=== PATIENT | female | born 1995 | race Caucasian/White ===

== ENCOUNTER 2017-12-11 04:06 | Emergency (ER) | payer SELFPAY ==
[2017-12-11 04:18] VITALS: RESP 16
--- NOTE | 2017-12-11 04:52 | ED ---
Abdominal Pain HPI - General Chief Complaint: Abdominal Pain Stated Complaint: Back/Abdominal Pain Time Seen by Provider: 12/11/17 04:24 Source: patient Mode of arrival: ambulatory Limitations: no limitations - History of Present Illness Initial Comments: This patient is 20-year-old woman who presents to be evaluated for suspected urinary tract infection. She states she started having dysuria between 2 and 3 days ago. She states over the course the past day she noticed some low abdominal pain and some bilateral flank pain that got worse this morning. Patient denies vaginal discharge. Denies fever or chills. No other symptoms. MD Complaint: abdominal pain, flank pain Onset/Timin -: days(s) Location: suprapubic, L flank, R flank Migration to: no migration Severity: severe Quality: aching Consistency: constant Improves With: nothing Worsens With: other (urination) Associated Symptoms: dysuria - Related Data Previous Rx's Medication Instructions Recorded Ciprofloxacin HCl [Cipro] 500 mg PO Q12HR #14 tablet 12/11/17 Ibuprofen [Motrin] 600 mg PO Q8HR PRN #20 tab 12/11/17 Phenazopyridine [Pyridium] 100 mg PO TID #6 tablet 12/11/17 Allergies Allergy/AdvReac Type Severity Reaction Status Date / Time No Known Allergies Allergy Verified 12/11/17 04:18 Review of Systems ROS Statement: Those systems with pertinent positive or pertinent negative responses have been documented in the HPI. ROS Other: All systems not noted in ROS Statement are negative. Constitutional: Denies: fever, chills Respiratory: Denies: cough, dyspnea Cardiovascular: Denies: chest pain Gastrointestinal: Reports: abdominal pain. Denies: nausea, vomiting, diarrhea Genitourinary: Reports: dysuria, hematuria. Denies: discharge, abnormal menses Musculoskeletal: Denies: back pain Skin: Denies: rash Neurological: Denies: headache, weakness, numbness Past Medical History Past Medical History: No Reported History History of Any Multi-Drug Resistant Organisms: None Reported Past Surgical History: No Surgical Hx Reported Past Psychological History: No Psychological Hx Reported Smoking Status: Never smoker Past Alcohol Use History: Rare Past Drug Use History: Marijuana General Exam Limitations: no limitations General appearance: alert, in no apparent distress Head exam: Present: atraumatic, normocephalic Eye exam: Present: normal appearance. Absent: scleral icterus, conjunctival injection ENT exam: Present: normal oropharynx Respiratory exam: Present: normal lung sounds bilaterally. Absent: respiratory distress, wheezes, rales, rhonchi, stridor Cardiovascular Exam: Present: regular rate, normal rhythm, normal heart sounds. Absent: systolic murmur, diastolic murmur, rubs, gallop GI/Abdominal exam: Present: soft, tenderness (There is suprapubic tenderness without rebound or guarding), normal bowel sounds. Absent: distended, guarding , rebound, rigid, mass, pulsatile mass, hernia Extremities exam: Present: normal inspection, normal capillary refill. Absent: pedal edema, calf tenderness Back exam: Present: normal inspection. Absent: CVA tenderness (R), CVA tenderness (L) Neurological exam: Present: alert Skin exam: Present: warm, dry, intact, normal color. Absent: rash Course Vital Signs 12/11/17 04:14 Temperature 98.6 F Pulse Rate 102 H Respiratory 16 Rate Blood Pressure 122/72 O2 Sat by Pulse 100 Oximetry Medical Decision Making - Lab Data Lab Results 12/11/17 Range/Units 04:35 Urine Color Yellow Urine Appearance Cloudy H (Clear) Urine pH 6.0 (5.0-8.0) Ur Specific [place] 1.012 (1.001-1.035) Urine Protein 1+ H (Negative) Urine Glucose (UA) Negative (Negative) Urine Ketones Trace H (Negative) Urine Blood Small H (Negative) Urine Nitrite Negative (Negative) Urine Bilirubin Negative (Negative) Urine Urobilinogen <2.0 (<2.0) mg/dL Ur Leukocyte Esterase Large H (Negative) Urine RBC 31 H (0-5) /hpf Urine WBC >182 H (0-5) /hpf Urine WBC Clumps Few H (None) /hpf Ur Squamous Epith Cells 2 (0-4) /hpf Urine Mucus Rare H (None) /hpf Disposition Clinical Impression: Urinary tract infection Disposition: HOME SELF-CARE Condition: Good Instructions: Urinary Tract Infection in Women (ED) Prescriptions: Ciprofloxacin HCl [Cipro] 500 mg PO Q12HR #14 tablet Ibuprofen [Motrin] 600 mg PO Q8HR PRN #20 tab PRN Reason: Pain Phenazopyridine [Pyridium] 100 mg PO TID #6 tablet Is patient prescribed a controlled substance at d/c from ED?: No Referrals: None,Stated [Primary Care Provider] - 1-2 days
[2017-12-11 05:06] LABS: Appearance,Urine Cloudy (Clear); Bilirubin,Urine Negative (Negative); Blood,Urine Small (Negative); Color,Urine Yellow; Glucose,Urine (UA) Negative (Negative); Ketones,Urine Trace (Negative); Leukocyte Esterase,Urine Large (Negative); Mucus,Urine Rare /hpf; Nitrite,Urine Negative (Negative); Protein,Urine 1+ (Negative); RBC,Urine 31 /hpf (0-5); Specific Gravity,Urine 1.012 (1.001-1.035); Squamous Epithelial Cell,Urine 2 /hpf (0-4); Urobilinogen,Urine <2.0 mg/dL (<2.0); WBC,Urine >182 /hpf (0-5)
[2017-12-11] MEDS ORDERED: LEVOFLOXACIN 500 MG TAB PO STA (05:39)
[2017-12-11 06:22] VITALS: BP 109/58; PULSE 75; TEMP 98.2
== END 2017-12-11 06:25 | disposition home or self-care (01) ==
LOC: EC 04:06
DX: N39.0 Urinary tract infection, site not specified (principal)
CPT/HCPCS: 81001; 99284

== ENCOUNTER 2019-06-01 14:48 | Emergency (ER) | payer BC ==
[2019-06-01 14:55] VITALS: TEMP 97.8
--- NOTE | 2019-06-01 15:29 | ED ---
SOB HPI - General Chief Complaint: Shortness of Breath Stated Complaint: Rib pain Time Seen by Provider: 06/01/19 15:08 Source: patient Mode of arrival: ambulatory Limitations: no limitations - History of Present Illness Initial Comments: Patient is a 23-year-old female presenting to the emergency Department with complaints of shortness of breath and left-sided rib pain that started 4 AM this morning. Patient states this pain woke her up from sleep. Patient is currently 22 weeks . She did call her JOB PRINTER, Dr. Goodwin today who recommended she go into the ER for evaluation. Patient states she did have flulike symptoms last week with lots of coughing. Patient states those symptoms have since improved. Patient states her pain does increase with coughing or deep breathing. She never has had this kind of rib pain before. She denies history of blood clots. She denies recent travel. She denies chest pains, vomiting, diarrhea, abdominal pain. She denies any vaginal bleeding. She has no other complaints at this time. Upon arrival to the ER, her vital signs are stable. - Related Data Previous Rx's Medication Instructions Recorded Ciprofloxacin HCl [Cipro] 500 mg PO Q12HR #14 tablet 12/11/17 Ibuprofen [Motrin] 600 mg PO Q8HR PRN #20 tab 12/11/17 Phenazopyridine [Pyridium] 100 mg PO TID #6 tablet 12/11/17 Albuterol Inhaler [Ventolin Hfa 1 - 2 puff INHALATION RT-Q6H PRN 06/01/19 Inhaler] #1 inhaler Azithromycin [Zithromax Z-pack] 0 mg PO DIRECTED #1 pack 06/01/19 Allergies Allergy/AdvReac Type Severity Reaction Status Date / Time No Known Allergies Allergy Verified 06/01/19 14:56 Review of Systems ROS Statement: Those systems with pertinent positive or pertinent negative responses have been documented in the HPI. ROS Other: All systems not noted in ROS Statement are negative. Past Medical History Past Medical History: No Reported History History of Any Multi-Drug Resistant Organisms: None Reported Past Surgical History: No Surgical Hx Reported Past Psychological History: Anxiety Smoking Status: Never smoker Past Alcohol Use History: Rare Past Drug Use History: None Reported, Marijuana General Exam - General Exam Comments Initial Comments: GENERAL: Well-appearing, well-nourished and in no acute distress. HEAD: Atraumatic, normocephalic. EYES: Pupils equal round and reactive to light, extraocular movements intact, sclera anicteric, conjunctiva are normal. ENT: TMs normal, nares patent, oropharynx clear without exudates. Moist mucous membranes. NECK: Normal range of motion, supple without lymphadenopathy or JVD. LUNGS: Breath sounds clear to auscultation bilaterally and equal. No wheezes rales or rhonchi. HEART: Regular rate and rhythm without murmurs, rubs or gallops. ABDOMEN: Soft, nontender, normoactive bowel sounds. No guarding, no rebound. No masses appreciated. : Deferred EXTREMITIES: Normal range of motion, no pitting or edema. No clubbing or cyanosis. NEUROLOGICAL: Normal speech, normal gait. PSYCH: Normal mood, normal affect. SKIN: Warm, Dry, normal turgor, no rashes or lesions noted. Limitations: no limitations Course Vital Signs 06/01/19 06/01/19 14:51 17:05 Temperature 97.8 F Pulse Rate 82 88 Respiratory 18 16 Rate Blood Pressure 115/70 112/78 O2 Sat by Pulse 98 100 Oximetry Medical Decision Making - Medical Decision Making Patient is a 23-year-old female presenting with sudden onset of left-sided rib pain as well as shortness of breath since this morning. Patient is currently 22 weeks and did call her JOB PRINTER, Dr. Goodwin who recommended ER ev aluation. tones today are normal. Laboratory today shows slight leukocytosis at 14.3, d-dimer is elevated at 1.75. CTA was obtained to evaluate for PE. No evidence of PE, multifocal left sided pneumonia. I discussed these findings with the patient. Patient will be started on azithromycin and given an inhaler to use for shortness of breath. She is in agreement with this plan of care. She will follow up with her JOB PRINTER. Return parameters were discussed with the patient she verbalized understanding. She is stable for discharge. Case discussed with Dr. Mclaughlin. - Lab Data Result diagrams: 06/01/19 15:26 06/01/19 15:26 Lab Results 06/01/19 06/01/19 06/01/19 Range/Units 15:26 15:26 15:26 WBC 14.3 H (3.8-10.6) k/uL RBC 3.96 (3.80-5.40) m/uL Hgb 11.9 (11.4-16.0) gm/dL Hct 33.8 L (34.0-46.0) % MCV 85.5 (80.0-100.0) fL MCH 30.1 (25.0-35.0) pg MCHC 35.2 (31.0-37.0) g/dL RDW 12.9 (11.5-15.5) % Plt Count 229 (150-450) k/uL Neutrophils % 85 % Lymphocytes % 8 % Monocytes % 4 % Eosinophils % 1 % Basophils % 1 % Neutrophils # 12.1 H (1.3-7.7) k/uL Lymphocytes # 1.2 (1.0-4.8) k/uL Monocytes # 0.6 (0-1.0) k/uL Eosinophils # 0.2 (0-0.7) k/uL Basophils # 0.1 (0-0.2) k/uL D-Dimer 1.75 H (<0.60) mg/L FEU Sodium 133 L (137-145) mmol/L Potassium 4.0 (3.5-5.1) mmol/L Chloride 106 (98-107) mmol/L Carbon Dioxide 21 L (22-30) mmol/L Anion Gap 6 mmol/L BUN 9 (7-17) mg/dL Creatinine 0.42 L (0.52-1.04) mg/dL Est GFR (CKD-EPI)AfAm >90 (>60 ml/min/1.73 sqM) Est GFR (CKD-EPI)NonAf >90 (>60 ml/min/1.73 sqM) Glucose 81 (74-99) mg/dL Calcium 8.5 (8.4-10.2) mg/dL Total Bilirubin 0.7 (0.2-1.3) mg/dL AST 33 (14-36) U/L ALT 29 (4-34) U/L Alkaline Phosphatase 66 (38-126) U/L Total Protein 6.0 L (6.3-8.2) g/dL Albumin 3.3 L (3.5-5.0) g/dL Disposition Clinical Impression: Pneumonia, Rib pain on left side Disposition: HOME SELF-CARE Condition: Stable Instructions (If sedation given, give patient instructions): Pneumonia (ED) Additional Instructions: Please return to the Emergency Department if symptoms worsen or any other concerns. Take antibiotic as prescribed. Use inhaler as needed for shortness of breath. Follow-up with JOB PRINTER as discussed. Prescriptions: Albuterol Inhaler [Ventolin Hfa Inhaler] 1 - 2 puff INHALATION RT-Q6H PRN #1 inhaler PRN Reason: Shortness Of Breath Azithromycin [Zithromax Z-pack] 0 mg PO DIRECTED #1 pack Is patient prescribed a controlled substance at d/c from ED?: No Referrals: None,Stated [Primary Care Provider] - 1-2 days Ganga Goodwin DO [Family Provider] - 1-2 days
[2019-06-01 15:39] LABS: Basophils # (A) 0.1 k/uL (0-0.2); Basophils % (A) 1 %; Eosinophils # (A) 0.2 k/uL (0-0.7); Eosinophils % (A) 1 %; HCT 33.8 % (34.0-46.0); HGB 11.9 gm/dL (11.4-16.0); Lymphocytes # (A) 1.2 k/uL (1.0-4.8); Lymphocytes % (A) 8 %; MCH 30.1 pg (25.0-35.0); MCHC 35.2 g/dL (31.0-37.0); MCV 85.5 fL (80.0-100.0); Mean Platelet Volume 7.4; Monocytes # (A) 0.6 k/uL (0-1.0); Monocytes % (A) 4 %; Neutrophils # (A) 12.1 k/uL (1.3-7.7); Neutrophils % (A) 85 %; Platelet Count 229 k/uL (150-450); RBC 3.96 m/uL (3.80-5.40); RDW 12.9 % (11.5-15.5); WBC 14.3 k/uL (3.8-10.6)
[2019-06-01 16:05] LABS: ALT 29 U/L (4-34); AST 33 U/L (14-36); African American GFR (CKD) >90 (>60 ml/min/1.73 sqM); Albumin 3.3 g/dL (3.5-5.0); Alkaline Phosphatase 66 U/L (38-126); Anion Gap 6 mmol/L; Blood Urea Nitrogen 9 mg/dL (7-17); Calcium 8.5 mg/dL (8.4-10.2); Carbon Dioxide 21 mmol/L (22-30); Chloride 106 mmol/L (98-107); Glucose 81 mg/dL (74-99); Non-African American GFR(CKD) >90 (>60 ml/min/1.73 sqM); Sodium 133 mmol/L (137-145); Total Bilirubin 0.7 mg/dL (0.2-1.3)
--- NOTE | 2019-06-01 16:44 | CT ---
EXAMINATION TYPE: CT chest angio for PE DATE OF EXAM: 06/01/2019 COMPARISON: NONE HISTORY: Elevated d-dimer with left sided chest pain. CT DLP: 252.9 mGycm. Automated Exposure Control for Dose Reduction was Utilized. CONTRAST: CTA scan of the thorax is performed with IV Contrast, patient injected with 100 mL of Isovue 370, pul monary embolism protocol. MIP Images are created on CT scanner and reviewed. FINDINGS: LUNGS: On 4 left basilar multifocal opacities appear as pneumonia. Minimal atelectasis in the lungs.. There is no pleural effusion or pneumothorax seen. The tracheobronchial tree is patent. MEDIASTINUM: Incidentally noted bovine aortic arch. There is satisfactory enhancement of the pulmonar y artery and its branches, there is no CT evidence for pulmonary embolism. There are no greater than 1 cm hilar or mediastinal lymph nodes. No cardiomegaly or pericardial effusion is seen. Small amou nt of probable residual thymic tissue in the superior anterior mediastinum. OTHER: Suspected mild degree hepatic steatosis. Osseous structures appear intact. IMPRESSION: 1. No evidence of pulmonary bolus. 2. Multifocal left basilar and solid lesions, most compatible with multifocal pneumonia.
[2019-06-01 17:06] VITALS: BP 112/78; PULSE 88; RESP 16
== END 2019-06-01 17:02 | disposition home or self-care (01) ==
LOC: EC 14:48
DX: O99.512 Diseases of the respiratory system complicating pregnancy, second trimester (principal); J18.9 Pneumonia, unspecified organism; O99.89 Other specified diseases and conditions complicating pregnancy, childbirth and the puerperium; R07.81 Pleurodynia; O99.112 Other diseases of the blood and blood-forming organs and certain disorders involving the immune mechanism complicating pregnancy, second trimester; R79.1 Abnormal coagulation profile; Z3A.22 22 weeks gestation of pregnancy
CPT/HCPCS: 36415; 85379; 80053; 85025; 71275; 99285; Q9967

== ENCOUNTER 2019-09-29 16:07 | Inpatient (IN) | payer BC ==
[2019-09-29] MEDS ORDERED: BUTORPHANOL 1 MG/ML 1 ML VIAL IV PRN (16:20)
[2019-09-29] MEDS ORDERED: DINOPROSTONE 10 MG INSERT.ER VAGINAL ONE (16:20)
--- NOTE | 2019-09-29 17:35 | P.HPOB ---
History of Present Illness H&P Date: 09/29/19 Chief Complaint: Requested induction of labor This patient is a pleasant 23-year-old 1 para 0 female estimated date of confinement 10/05/2019 estimated gestational age 39 and one sevenths weeks who presents to labor and delivery for requested induction of labor. Patient does have an unfavorable cervix and therefore going to plan Cervidil for cervical ripening. The father of the baby did have a brother who from a congenital heart defect so I did order a level III ultrasound and heart echo which showed to mid muscular VSDs that were felt to be small resolve . Maternal medicine recommended a follow-up echo . Pregnan cy has otherwise been uncomplicated. Review of Systems Genitourinary: Reports Menstruation: Reports amenorrhea Past Medical History Past Medical History: No Reported History History of Any Multi-Drug Resistant Organisms: None Reported Past Surgical History: No Surgical Hx Reported Past Anesthesia/Blood Transfusion Reactions: No Reported Reaction Past Psychological History: Anxiety Smoking Status: Never smoker Past Alcohol Use History: Rare Past Drug Use History: None Reported, Marijuana - Past Family History Mother History Unknown: Yes Family Medical History: No Reported History Medications and Allergies Home Medications Medication Instructions Recorded Confirmed Type Pnv No.95/Ferrous Fum/Folic AC 1 each PO 09/29/19 History [ Multivitamin Tablet] Allergies Allergy/AdvReac Type Severity Reaction Status Date / Time No Known Allergies Allergy Verified 09/29/19 16:18 Exam Vital Signs Temp Pulse Resp BP 09/29/19 16:17 96.7 F L 90 16 141/87 Intake and Output 09/29/19 09/29/19 09/29/19 06:59 14:59 22:59 Other: Weight 74.389 kg - OBG Physical Exam Abdomen: bowel sounds normal, no diffuse tenderness, no bruit present, no guarding noted, no hepatomegaly, no splenomegaly, no mass Vulva: both: normal Vagina: normal moisture, no discharge Cervix: no lesion (Cervix is closed and thick.), no discharge Uterus: enlarged (Fundal height is 38 cm) Results blood work shows she is O positive, rubella immune, RPR is nonreactive, hepatitis B is negative, HIV is nonreactive, Glucola was 157 with a normal three-hour gtt., group B strep was negative, ultrasounds as above. Cardiac echo was done on June 04 which showed 2 small mid muscular VSDs that recommended a nonemergent follow-up. Assessment and Plan Assessment: This is a pleasant 23-year-old 1 para 0 female 39 and one sevenths weeks gestation admitted to labor and delivery for requested duction of labor. Plan is Cervidil placement and anticipate vaginal delivery. Patient's evaluation is also showed 2 small mid muscular VSD's that are require follow-up not emergently. (1) 39 weeks gestation of Current Visit: Yes Status: Acute Code(s): Z3A.39 - 39 WEEKS GESTATION OF SNOMED Code(s): 35912491 (2) Elective induction of labor planned Current Visit: Yes Status: Acute Code(s): ZEX6875 - SNOMED Code(s): 694886942
[2019-09-30] MEDS ORDERED: METHYLERGONOVINE 0.2 MG/ML 1 ML AMP IM PRN (05:09)
[2019-09-30] MEDS ORDERED: OXYTOCIN 10 UNIT/ML 1 ML VIAL IM PRN (05:09)
[2019-09-30] MEDS ORDERED: LIDOCAINE 0.5% (PF) 5 MG/ML (50 ML SDV) SQ PRN (05:09)
[2019-09-30] MEDS ORDERED: TERBUTALINE 1 MG/ML VIAL SQ PRN (05:09)
[2019-09-30] MEDS ORDERED: OXYTOCIN 30 UNITS/500 ML NS 30 UNIT in SALINE 1 500ML.BAG IV SCH (05:09)
[2019-09-30] MEDS ORDERED: CARBOPROST TROMETHAMINE 250 MCG/ML 1 ML AMP IM PRN (05:09)
[2019-09-30] MEDS: LACTATED RINGERS 1,000 ML IV SCH ×2 (05:47→12:14)
--- NOTE | 2019-09-30 05:59 | P.PN ---
Progress Note - Text Progress Note Date: 09/30/19 Patient had regular contractions Cervidil overnight. Unfortunately, cervix is still closed and fingertip external os. I attempted artificial rupture membranes without success. Patient's blood pressures remained mildly elevated with occasional diastolics over 90 and systolics over 140. I discussed current recommendations the patient to proceed with delivery due to the blood pressure elevations even though at this time I don't think she has preeclampsia. Therefore today we'll try Pitocin and if able all rupture membranes later. She continues to fail induction and we'll proceed with section for delivery.
[2019-09-30 06:06] LABS: Basophils % (A) 1 %; Eosinophils # (A) 0.1 k/uL (0-0.7); Eosinophils % (A) 1 %; HCT 36.8 % (34.0-46.0); HGB 11.8 gm/dL (11.4-16.0); Hypochromasia Slight; Lymphocytes # (A) 2.1 k/uL (1.0-4.8); Lymphocytes % (A) 23 %; MCH 25.4 pg (25.0-35.0); MCHC 32.2 g/dL (31.0-37.0); MCV 78.8 fL (80.0-100.0); Monocytes # (A) 0.5 k/uL (0-1.0); Monocytes % (A) 5 %; Neutrophils # (A) 6.2 k/uL (1.3-7.7); Neutrophils % (A) 69 %; Platelet Count 225 k/uL (150-450); Poikilocytosis Slight; RBC 4.67 m/uL (3.80-5.40); RDW 13.5 % (11.5-15.5); WBC 9.1 k/uL (3.8-10.6)
[2019-09-30 06:11] LABS: Appearance,Urine Cloudy (Clear); Bacteria,Urine Rare /hpf; Bilirubin,Urine Negative (Negative); Blood,Urine Negative (Negative); Color,Urine Yellow; Glucose,Urine (UA) Negative (Negative); Ketones,Urine 1+ (Negative); Leukocyte Esterase,Urine Negative (Negative); Mucus,Urine Occasional /hpf; Nitrite,Urine Negative (Negative); PH, Urine 6.5 (5.0-8.0); Protein,Urine Negative (Negative); RBC,Urine <1 /hpf (0-5); Specific Gravity,Urine 1.017 (1.001-1.035); Squamous Epithelial Cell,Urine 5 /hpf (0-4); Urobilinogen,Urine <2.0 mg/dL (<2.0); WBC,Urine 1 /hpf (0-5)
[2019-09-30 06:18] LABS: Protein/Creatinine Ratio,Urine 0.141
[2019-09-30 06:23] LABS: Uric Acid 4.1 mg/dL (3.7-7.4)
[2019-09-30] MEDS ORDERED: CITRIC ACID-SODIUM CITRATE 15 ML CUP PO ONE (16:40)
[2019-09-30] MEDS ORDERED: NALBUPHINE 10 MG/ML (1 ML AMP) ONE (17:14)
[2019-09-30] MEDS ORDERED: MORPHINE SULFATE (PF) 0.3 MG/0.3 ML SYR ONE (17:14)
[2019-09-30] MEDS ORDERED: KETOROLAC 30 MG/ML 1 ML VIAL ONE (17:14)
[2019-09-30] MEDS ORDERED: ONDANSETRON 4 MG/2 ML VIAL ONE (17:14)
[2019-09-30] MEDS ORDERED: OXYTOCIN 10 UNIT/ML 1 ML VIAL ONE (17:14)
[2019-09-30] MEDS ORDERED: ePHEDrine SULFATE/0.9% NACL/PF 50 MG/5 ML SYRINGE IV ONE (17:14)
[2019-09-30] MEDS ORDERED: NALOXONE 0.4 MG/ML 1 ML VIAL IV PRN (17:53)
[2019-09-30] MEDS ORDERED: diphenhydrAMINE 25 MG CAP PO PRN (18:07)
[2019-09-30] MEDS ORDERED: HYDROcodone/APAP 5-325MG 1 EACH TAB PO PRN (18:07)
[2019-09-30] MEDS ORDERED: ZOLPIDEM 5 MG TAB PO PRN (18:07)
[2019-09-30] MEDS ORDERED: ONDANSETRON 4 MG/2 ML VIAL IVP PRN (18:07)
[2019-09-30] MEDS ORDERED: ACETAMINOPHEN TAB 325 MG TAB PO PRN (18:07)
[2019-09-30] MEDS ORDERED: SIMETHICONE 80 MG CHEWABLE PO PRN (18:07)
[2019-09-30] MEDS ORDERED: METOCLOPRAMIDE 5 MG/ML 2 ML VIAL IVP PRN (18:07)
[2019-09-30] MEDS ORDERED: diphenhydrAMINE 50 MG/ML 1 ML VIAL IVP PRN (18:07)
[2019-09-30] MEDS ORDERED: OXYTOCIN 20 UNITS/1000 ML NS 1,000 ML IV SCH (18:15)
--- NOTE | 2019-09-30 18:38 | P.OP ---
Date of Procedure: 09/30/19 Preoperative Diagnosis: #1: 39-2/7 week intrauterine . #2: Gestational hypertension. #3: Failed induction of labor. Postoperative Diagnosis: Same Procedure(s) Performed: Primary low transverse section Anesthesia: spinal Surgeon: Richard Harden Wool Hat Hydraulicker #1: Demi Desai Estimated Blood Loss (ml): 1,000 Pathology: none sent Condition: stable Disposition: floor Indications for Procedure: Please see dictated H&P for intimate details of this patient's admission. Brief summary this is a pleasant 23-year-old 1 para 0 female 39-2/7 weeks gestation who is admitted to labor and delivery for two-stage induction of labor secondary to unfavorable cervix and gestational hypertension. Patient has a preeclampsia evaluation which is negative. Cervix is closed and the Cervidil is placed. Cervix only dilates to a fingertip and I'm unable to artificially rupture membranes. I do give her Pitocin throughout the day without any significant cervical change. At this time we plan to proceed with section for delivery due to the failure to progress. Patient understands this surgery and risks including risks of infection, bleeding, possible injury bowel, bladder, vessels, and/or other organs. All the patient's questions are answered and a written consent is obtained. Operative Findings: This was a vigorous viable female Apgars were 9 and 9 delivery time is 1728 hrs. Description of Procedure: This patient has a Simon catheter placed to straight drain. She is subsequently taken to the operating room where she sat up and spinal anesthetic is administered without incident. With an adequate level of anesthesia she has abdominal prep and drape. Scalpels and taken Pfannenstiel skin incision is made. A second scalpel is taken down to the fascia and the fascia scored with a knife. Fascial incision extended bilaterally using the Boss scissors. Fascia is then dissected off the rectus muscles sharply. The rectus muscles are peritoneum identified and entered sharply. Peritoneal incision extended superior and inferior without difficulty. Bladder blade is then placed. Bladder peritoneum was then taken off the lower uterine segment sha rply. Scalpels and taken low transverse incision is then made. Using a hemostat I into the uterine cavity bluntly and there is loss of a copious amount of clear fluid. This incision is extended bluntly. Infant's head is then guided through the incision with fundal pressure. Mouth and nares are bulb suctioned. There is no evidence of a nuchal cord. We then have delivery the rest this 's body. Is a vigorous viable female Apgars are 9 and 9 delivery time is 1728 hrs. After delivery of the the umbilical cords doubly clamped and cut appears to be trivascular. The placenta is then manually extracted intact. The uterus is then externalized and uterine incision demarcated with Chambers clamps. Uterine incision then closed using 0 Vicryl running locked fashion 2 layers. Again excellent hemostasis is noted. Bladder peritoneum was then reapproximated using a 3-0 Vicryl. Excess fluid is removed from the abdomen and pelvis. Uterus placed back into the abdomen. Parietal peritoneum was then closed in 0 Vicryl running fashion. Rectus muscle reapproximate 0 Vicryl interrupted fashion. Fascial incision closed using 0 PDS. Fascial incision is intact and hemostatic. Subcutaneous tissues and closed using a 3-0 Vicryl. Skin is and closed using carrie. All counts are correct 3. There are no complications. and mother are stable in the birthing room.
[2019-10-01] MEDS: KETOROLAC 30 MG/ML 1 ML VIAL IVP PRN ×3 (00:06→12:30)
[2019-10-01] MEDS: SENNOSIDES-DOCUSATE SODIUM 1 EACH TAB PO SCH ×3 (03:11→20:52)
[2019-10-01 06:11] LABS: Basophils % (A) 0 %; Eosinophils % (A) 0 %; HCT 26.3 % (34.0-46.0); Hypochromasia Moderate; Lymphocytes # (A) 1.2 k/uL (1.0-4.8); Lymphocytes % (A) 11 %; MCH 26.7 pg (25.0-35.0); MCHC 33.2 g/dL (31.0-37.0); MCV 80.6 fL (80.0-100.0); Mean Platelet Volume 8.9; Monocytes # (A) 0.6 k/uL (0-1.0); Monocytes % (A) 5 %; Neutrophils # (A) 9.5 k/uL (1.3-7.7); Neutrophils % (A) 83 %; Platelet Count 184 k/uL (150-450); Poikilocytosis Slight; RBC 3.26 m/uL (3.80-5.40); RDW 13.4 % (11.5-15.5); WBC 11.5 k/uL (3.8-10.6)
[2019-10-01 06:12] LABS: HGB 8.7 gm/dL (11.4-16.0)
--- NOTE | 2019-10-01 06:40 | P.PNOBGPC ---
Subjective - Subjective Patient reports: Reports appetite normal, Reports voiding normally, Reports pain well controlled, Reports ambulating normally : doing well Objective - Vital Signs Latest vital signs: Vital Signs Temp Pulse Resp BP Pulse Ox 10/01/19 04:00 16 10/01/19 02:00 16 10/01/19 00:00 98.4 F 103 H 16 131/77 09/30/19 22:00 16 09/30/19 20:53 16 09/30/19 19:58 96.8 F L 104 H 16 136/69 09/30/19 19:28 96.9 F L 115 H 16 130/72 09/30/19 18:56 118 H 16 144/73 100 09/30/19 18:53 16 100 09/30/19 18:36 119 H 16 140/81 100 09/30/19 18:18 116 H 16 140/83 99 09/30/19 17:58 97.4 F L 116 H 16 139/72 100 09/30/19 17:53 16 100 Intake and Output 09/30/19 09/30/19 10/01/19 14:59 22:59 06:59 Intake Total 1000 Output Total 2292 Balance 1000 -2292 Intake: IV 1000 Output: Urine 300 Estimated Blood Loss 1992 Other: Voiding Method Indwelling Catheter # Voids 2 - Exam Lungs: bilateral: normal Chest: Normal S1, Normal S2 Extremities: Present: normal Abdomen: Present: normal appearance, soft. Absent: distention, tenderness Incision: Present: normal, dry, intact Uterus: Present: normal, firm - Labs Labs: Abnormal Lab Results - Last 24 Hours (Table) 10/01/19 Range/Units 05:23 WBC 11.5 H (3.8-10.6) k/uL RBC 3.26 L (3.80-5.40) m/uL Hgb 8.7 L D (11.4-16.0) gm/dL Hct 26.3 L (34.0-46.0) % Neutrophils # 9.5 H (1.3-7.7) k/uL Assessment and Plan Assessment: Postoperative day #1. Patient is resting without complaints. Vital signs are stable and she is afebrile. Uterus is firm nontender and her incision is intact and dry. Patient's having normal lochia. CBC shows a hemostat was 8.7 preoperatively is 11.5. I'm going to start her on some oral iron. Plan today is to encourage ambulation, advanced her diet, discontinue her catheter and continue routine postoperative care. (1) 39 weeks gestation of Current Visit: Yes Status: Acute Code(s): Z3A.39 - 39 WEEKS GESTATION OF SNOMED Code(s): 02456144 (2) Elective induction of labor planned Current Visit: Yes Status: Acute Code(s): ZST5292 - SNOMED Code(s): 452294799
--- NOTE | 2019-10-01 07:39 | P.PN ---
Progress Note - Text Progress Note Date: 10/01/19 23 yo female s/p . POD#1. Patient received intrathecal Duramorph. Fidelina ent was seen today, sitting up in bed no complaints, pain VAS score 0/10, no headache, no itching, no nausea and vomiting. Assessment and plan: Doing well in general no complications from anesthesia
[2019-10-01] MEDS: IRON AG/C/B12/CA/SUC.ACID/STOM 1 EACH TAB PO SCH (08:20)
[2019-10-01] MEDS: LACTATED RINGERS 1,000 ML IV SCH (12:47)
[2019-10-01] MEDS: IBUPROFEN 600 MG TAB PO PRN (20:52)
--- NOTE | 2019-10-02 06:41 | P.PNOBGPC ---
Subjective - Subjective Patient reports: Reports appetite normal, Reports voiding normally, Reports pain well controlled, Reports ambulating normally : doing well Objective - Vital Signs Latest vital signs: Vital Signs Temp Pulse Resp BP Pulse Ox 10/02/19 04:00 98.9 F 102 H 16 128/86 10/01/19 18:00 16 100 10/01/19 16:00 98.8 F 94 16 132/71 100 10/01/19 14:00 16 99 10/01/19 12:00 98.8 F 88 16 130/83 100 10/01/19 08:00 98.7 F 109 H 16 130/88 100 Intake and Output 10/01/19 10/01/19 10/02/19 14:59 22:59 06:59 Output Total 400 700 Balance -400 -700 Output: Urine 400 700 Straight 400 - Exam Lungs: bilateral: normal Chest: Normal S1, Normal S2 Extremities: Present: normal Abdomen: Present: normal appearance, soft. Absent: distention, tenderness Incision: Present: normal, dry, intact Uterus: Present: normal, firm Assessment and Plan Assessment: Patient is resting without new complaints wishes to go home. Vital signs are stable she's afebrile. She's tolerating regular diet, ambulating, urinating without difficulty. CBC yesterday did show hemoglobin 8.7 therefore she's placed on some iron she's had some normal lochia post . Plan is to continue routine care discharge home later today. (1) 39 weeks gestation of Current Visit: Yes Status: Acute Code(s): Z3A.39 - 39 WEEKS GESTATION OF SNOMED Code(s): 72564021 (2) Elective induction of labor planned Current Visit: Yes Status: Acute Code(s): DQZ9496 - SNOMED Code(s): 662170735
--- NOTE | 2019-10-02 06:43 | P.DS ---
Providers Date of admission: 09/29/19 16:07 Expected date of discharge: 10/02/19 Attending physician: Richard Harden Primary care physician: Stated None - Discharge Diagnosis(es) (1) 39 weeks gestation of Current Visit: Yes Status: Acute (2) Elective induction of labor planned Current Visit: Yes Status: Acute Hospital Course: Please see dictated H&P for intimate details of this patient's admission. Brief summary this pleasant 23-year-old 1 para 0 female 39 weeks gestation admitted for induction of labor secondary to gestational hypertension. Patient subsequently undergoes induction of labor and then onto a primary section for failed induction. Please see dictated delivery note/operative note. operative day #1 patient was doing well her hemoglobin was 8.7 and she was started on Chromagen at that time. Patient is asymptomatic. The pos toperative 2 she is able urinating without difficulty and wishes to go home. Patient's blood pressures remain stable she is felt to be stable for discharge home follow up with me in 10 days. Procedures: Cervidil induction of labor. Primary low transverse section Patient Condition at Discharge: Good Plan - Discharge Summary New Discharge Prescriptions: New Ibuprofen [Motrin] 600 mg PO Q6HR PRN #40 tab PRN Reason: Mild Pain Or Fever >= 100.5 Iron Ag/C/B12/Ca/Suc.acid/Stom [Multigen] 1 each PO DAILY #30 tab HYDROcodone/APAP 5-325MG [[place] 5-325] 1 each PO Q4HR PRN #18 tab PRN Reason: Moderate Pain No Action Pnv No.95/Ferrous Fum/Folic AC [ Multivitamin Tablet] 1 each PO Discharge Medication List Pnv No.95/Ferrous Fum/Folic AC [ Multivitamin Tablet] 1 each PO 09/29/19 [History] HYDROcodone/APAP 5-325MG [[place] 5-325] 1 each PO Q4HR PRN #18 tab 10/02/19 [Rx] Ibuprofen [Motrin] 600 mg PO Q6HR PRN #40 tab 10/02/19 [Rx] Iron Ag/C/B12/Ca/Suc.acid/Stom [Multigen] 1 each PO DAILY #30 tab 10/02/19 [Rx] Follow up Appointment(s)/Referral(s): Richard Harden MD [STAFF PHYSICIAN] - 11/17/19 8:45 am (Please see me in 1-1/2 weeks also for an incision check.) Patient Instructions/Handouts: Iron Rich Diet (DC), (DC) Activity/Diet/Wound Care/Special Instructions: No strenuous activity or heavy lifting for 6 weeks. No driving. No intercourse or anything per vagina for 6 weeks. Please call if any fever, chills, excessive vaginal bleeding, and/or abdominal pain Discharge Disposition: HOME SELF-CARE
[2019-10-02] MEDS: IBUPROFEN 600 MG TAB PO PRN (08:01)
[2019-10-02] MEDS: SENNOSIDES-DOCUSATE SODIUM 1 EACH TAB PO SCH (08:03)
[2019-10-02 08:51] VITALS: BP 123/84; PULSE 103; RESP 20; TEMP 98.5
[2019-10-02] MEDS: IRON AG/C/B12/CA/SUC.ACID/STOM 1 EACH TAB PO SCH (10:29)
== END 2019-10-02 10:35 | disposition home or self-care (01) | DRG 788 ==
LOC: 4FBP 16:07
PROVIDERS: ADMIT Obstetrics & Gynecology; ATTEND Obstetrics & Gynecology
PROC: 3E0P7VZ Introduction of Hormone into Female Reproductive, Via Natural or Artificial Opening (ICD-10-PCS; 2019-09-29)
PROC: 10D00Z1 Extraction of Products of Conception, Low, Open Approach (ICD-10-PCS; principal; 2019-09-30 17:15)
DX: O13.4 Gestational [pregnancy-induced] hypertension without significant proteinuria, complicating childbirth (principal); O35.8XX0 Maternal care for other (suspected) fetal abnormality and damage, not applicable or unspecified; O61.9 Failed induction of labor, unspecified; O99.344 Other mental disorders complicating childbirth; F41.9 Anxiety disorder, unspecified; Z37.0 Single live birth; Z3A.39 39 weeks gestation of pregnancy
CPT/HCPCS: 81001; 82570; 83615; 84156; 84450; 84460; 84550; 85025; 86850; 86900; 86901

== ENCOUNTER 2024-07-26 01:42 | Inpatient (IN) | payer OTHER ==
[2024-07-26] MEDS ORDERED: miSOPROStoL 200 MCG TAB RECTAL PRN (02:02)
[2024-07-26] MEDS ORDERED: LIDOCAINE 0.5% (PF) 5 MG/ML (50 ML SDV) SQ PRN (02:02)
[2024-07-26] MEDS ORDERED: TERBUTALINE 1 MG/ML VIAL SQ PRN (02:02)
[2024-07-26] MEDS ORDERED: miSOPROStoL 200 MCG TAB PO PRN ×2 (02:02→10:09)
[2024-07-26] MEDS ORDERED: CARBOPROST TROMETHAMINE 250 MCG/ML 1 ML AMP IM PRN (02:02)
[2024-07-26] MEDS ORDERED: OXYTOCIN 10 UNIT/ML 1 ML VIAL IM PRN (02:02)
[2024-07-26] MEDS ORDERED: METHYLERGONOVINE 0.2 MG/ML 1 ML AMP IM PRN (02:02)
[2024-07-26] MEDS ORDERED: TRANEXAMIC 1,000 MG/100ML-NACL 1,000 MG in EMPTY BAG 1 BAG IV PRN ×2 (02:02→10:09)
[2024-07-26] MEDS: LACTATED RINGERS 1,000 ML IV SCH ×2 (02:41→14:59)
[2024-07-26 02:51] LABS: Basophils # (A) 0.1 k/uL (0-0.2); Basophils % (A) 0 %; Eosinophils # (A) 0.1 k/uL (0-0.7); Eosinophils % (A) 1 %; HCT 34.1 % (34.0-46.0); Hypochromasia Slight; Lymphocytes # (A) 2.5 k/uL (1.0-4.8); Lymphocytes % (A) 18 %; MCH 25.5 pg (25.0-35.0); MCHC 32.3 g/dL (31.0-37.0); MCV 78.9 fL (80.0-100.0); Mean Platelet Volume 8.8; Monocytes # (A) 0.7 k/uL (0-1.0); Monocytes % (A) 5 %; Neutrophils # (A) 10.4 k/uL (1.3-7.7); Neutrophils % (A) 74 %; Platelet Count 224 k/uL (150-450); Poikilocytosis Slight; RBC 4.33 m/uL (3.80-5.40); RDW 13.6 % (11.5-15.5)
[2024-07-26] MEDS: OXYTOCIN 30 UNITS/500 ML NS 30 UNIT in SALINE 1 500ML.BAG IV SCH (02:56)
[2024-07-26] MEDS: BUTORPHANOL 1 MG/ML 1 ML VIAL IV PRN (09:30)
[2024-07-26] MEDS: CITRIC ACID-SODIUM CITRATE 15 ML CUP PO ONE (10:17)
[2024-07-26] MEDS: LACTATED RINGERS 1,000 ML IV ONE (10:30)
[2024-07-26] MEDS ORDERED: NALBUPHINE (ANES) 10 MG/ML - 1 ML AMP ONE (10:35)
[2024-07-26] MEDS ORDERED: KETOROLAC 15 MG/ML 1 ML VIAL ONE (10:35)
[2024-07-26] MEDS ORDERED: ONDANSETRON 4 MG/2 ML VIAL ONE (10:35)
[2024-07-26] MEDS ORDERED: OXYTOCIN 30 UNITS/500 ML NS BAG IV ONE (10:35)
[2024-07-26] MEDS ORDERED: MORPHINE SULFATE (PF) 0.3 MG/0.3 ML SYR ONE (10:35)
[2024-07-26] MEDS ORDERED: METOCLOPRAMIDE 5 MG/ML 2 ML VIAL IVP PRN (11:23)
[2024-07-26] MEDS ORDERED: ONDANSETRON 4 MG/2 ML VIAL IVP PRN (11:23)
[2024-07-26] MEDS ORDERED: LANOLIN CREAM 1 GM TUBE TOPICAL PRN (11:23)
[2024-07-26] MEDS ORDERED: diphenhydrAMINE 50 MG/ML 1 ML VIAL IVP PRN (11:23)
[2024-07-26] MEDS ORDERED: NALOXONE 0.4 MG/ML 1 ML VIAL IV PRN (11:23)
[2024-07-26] MEDS ORDERED: diphenhydrAMINE 50 MG CAP PO PRN (11:23)
[2024-07-26] MEDS ORDERED: ZOLPIDEM 5 MG TAB PO PRN (11:23)
[2024-07-26] MEDS ORDERED: diphenhydrAMINE 25 MG CAP PO PRN (11:23)
--- NOTE | 2024-07-26 11:26 | P.HPOB ---
History of Present Illness H&P Date: 07/26/24 Chief Complaint: SROM The 8-year-old G2, P1 presented at 39 weeks and 1 day with spontaneous rupture of membranes at 2245 clear fluid. When she presented her cervix was fingertip dilated thick and -3 station. She is dno irregularly. heart tones category 1. She has had 1 previous vaginal delivery and plan to with this baby. Review of Systems All systems: negative Constitutional: Denies chills, Denies fever Eyes: denies blurred vision, denies pain Ears, nose, mouth and throat: Denies headache, Denies sore throat Cardiovascular: Denies chest pain, Denies shortness of breath Respiratory: Denies cough Gastrointestinal: Denies abdominal pain, Denies diarrhea, Denies nausea, Denies vomiting Genitourinary: Denies dysuria, Denies hematuria Musculoskeletal: Denies myalgias Integumentary: Denies pruritus, Denies rash Neurological: Denies numbness, Denies weakness Psychiatric: Denies anxiety, Denies depression Endocrine: Denies fatigue, Denies weight change Past Medical History Past Medical History: No Reported History Additional Past Medical History / Comment(s): Obstetrical history she has had 1 previous section History of Any Multi-Drug Resistant Organisms: None Reported Past Surgical History: Section Past Anesthesia/Blood Transfusion Reactions: No Reported Reaction Past Psychological History: Anxiety Smoking Status: Current some day smoker Past Alcohol Use History: Rare Past Drug Use History: None Reported, Marijuana Additional Drug Use History / Comment(s): THC use - Past Family History Mother History Unknown: Yes Family Medical History: No Reported History Medications and Allergies Home Medications Medication Instructions Recorded Confirmed Type Pnv No.95/Ferrous Fum/Folic AC 1 each PO DAILY 09/29/19 07/26/24 History [ Multivitamin Tablet] Allergies Allergy/AdvReac Type Severity Reaction Status Date / Time No Known Allergies Allergy Verified 07/21/24 18:30 Exam Osteopathic Statement: *. No significant issues noted on an osteopathic structural exam other than those noted in the History and Physical/Consult. Vital Signs Temp Pulse Resp BP Pulse Ox 07/26/24 02:01 97.3 F L 90 16 120/84 99 07/26/24 01:46 96.5 F L 88 16 130/85 98 Intake and Output 07/25/24 07/26/24 07/26/24 22:59 06:59 14:59 Other: # Voids 2 Weight 79.379 kg Heart: Regular rate and rhythm Lungs: Clear to auscultation bilaterally Abdomen: Soft, nontender Extremities: Negative Homans sign Results Result Diagrams: 07/26/24 02:38 Abnormal Lab Results - Last 24 Hours (Table) 07/26/24 Range/Units 02:38 WBC 14.0 H (3.8-10.6) k/uL Hgb 11.0 L (11.4-16.0) gm/dL MCV 78.9 L (80.0-100.0) fL Neutrophils # 10.4 H (1.3-7.7) k/uL Assessment and Plan (1) 39 weeks gestation of Current Visit: No Status: Acute Code(s): Z3A.39 - 39 WEEKS GESTATION OF SNOMED Code(s): 11121867 (2) Previous section Current Visit: Yes Status: Acute Code(s): Z98.891 - HISTORY OF UTERINE SCAR FROM PREVIOUS SURGERY SNOMED Code(s): 394040617 Plan: 1. Discussed the risk and benefits of trial of labor after . 2. Pitocin augmentation 3. Monitor heart tones closely
--- NOTE | 2024-07-26 11:29 | P.OP ---
Date of Procedure: 07/26/24 Preoperative Diagnosis: 1. at 39 weeks 1 day 2. SROM 3. previous 4. intolerance of labor Postoperative Diagnosis: same Procedure(s) Performed: Repeat low-transverse Anesthesia: spinal Surgeon: Nataliia Craig Psychologist [employer] #1: Demi Desai Estimated Blood Loss (ml): 478 IV fluids (ml): 500 Urine output (ml): 50 Pathology: none sent Condition: stable Disposition: floor Indications for Procedure: 28-year-old G2, P1 presented at 39 weeks and 1 day with spontaneous rupture of membranes. When she presented she was fingertip dilated and heart tones were category 1. She was started on Pitocin augmentation and don every 3 minutes. Her cervix was 1 cm dilated 60% effaced and -3 station. The baby started to have late decelerations and variables with contractions. Since patient was remote from delivery we had a patient centered huddle and recommended expedited delivery. Patient consented to a repeat low-transverse C- section Operative Findings: Viable male, Apgars 9, 9, weight 8 pounds 7 ounces. Normal uterus, tubes, ovaries. Description of Procedure: Patient was taken to the operating room where spinal anesthesia was found be adequate. She was prepped and draped in normal sterile fashion in dorsal supine position with a leftward tilt. Pfannenstiel skin incision was made the scalpel and carried through to the underlying layer of fascia with the scalpel. Fascia was incised in midline and carried bilaterally with the Boss scissors. The superior aspect of the fascial incision was grasped with [place] clamps elevated and the underlying rectus muscles dissected off with the Boss's. Attention was then turned to inferior aspect of same incision which in a similar fashion was grasped tented up and the underlying rectus muscles dissected off with the Boss's. The rectus muscles were the midline and the peritoneum was identified tented up and entered sharply with the scalpel. The incision was extended superiorly and inferiorly with good visualization of the bladder. The bladder blade was inserted and the vesicouterine peritoneum was incised the Metzenbaums then carried bilaterally and bladder flap created digitally. A low transverse incision was then made on the uterus with the scalpel. This was carried bilaterally and digital manner. 's head delivered atraumatically, nose and mouth bulb suctioned, cord clamped and cut, handed off to waiting nurses. Apgars 9,9, weight 8 lbs. 7 oz. Placenta delivered manually, intact with three-vessel cord. The uterus is exteriorized and cleared of all clots and debris. The uterine incision was closed with 0 Vicryl in a running locked fashion. Second layer of the same sutures used in imbricating fashion to obtain excellent hemostasis. Both ovaries and tubes appeared normal. The uterus was placed back into the abdomen. The muscles were reapproximated using 2-0 Vicryl in interrupted fashion. The fascia was reapproximated using 0 Vicryl in a running fashion. The subcutaneous tissues closed with 3-0 Vicryl running fashion. The skin was closed carrie. Patient tolerated the procedure well, sponge and instrument counts were correct times 2 and she was taken to the recovery room in stable condition.
[2024-07-26] MEDS ORDERED: OXYTOCIN 30 UNITS/500 ML NS 30 UNIT in SALINE 1 500ML.BAG IV SCH (11:30)
[2024-07-26] MEDS: ACETAMINOPHEN TAB 500 MG TAB PO SCH (14:57)
[2024-07-26] MEDS: KETOROLAC 15 MG/ML 1 ML VIAL IVP SCH (19:22)
[2024-07-26] MEDS: SENNOSIDES-DOCUSATE SODIUM 1 EACH TAB PO SCH (19:22)
[2024-07-27] MEDS: diphenhydrAMINE 50 MG/ML 1 ML VIAL IVP PRN (03:13)
[2024-07-27 07:30] LABS: Basophils % (A) 0 %; Eosinophils # (A) 0.2 k/uL (0-0.7); Eosinophils % (A) 1 %; HCT 32.3 % (34.0-46.0); HGB 10.1 gm/dL (11.4-16.0); Hypochromasia Slight; Lymphocytes # (A) 1.6 k/uL (1.0-4.8); Lymphocytes % (A) 11 %; MCH 25.2 pg (25.0-35.0); MCHC 31.2 g/dL (31.0-37.0); MCV 80.8 fL (80.0-100.0); Mean Platelet Volume 8.7; Monocytes # (A) 0.5 k/uL (0-1.0); Monocytes % (A) 3 %; Neutrophils # (A) 12.1 k/uL (1.3-7.7); Neutrophils % (A) 82 %; Platelet Count 225 k/uL (150-450); Poikilocytosis Slight; RBC 3.99 m/uL (3.80-5.40); RDW 14.1 % (11.5-15.5); WBC 14.7 k/uL (3.8-10.6)
[2024-07-27] MEDS: IBUPROFEN 800 MG TAB PO SCH (10:47)
--- NOTE | 2024-07-27 10:51 | P.PNOBGPC ---
Subjective - Subjective Principal diagnosis: S/P RLTCS POD #1 Interval history: Patient seen and examined. Denies nausea, vomiting, chest pain, shortness of breath or calf pain. Patient reports: Reports appetite normal [place]: doing well Objective - Vital Signs Latest vital signs: Vital Signs Temp Pulse Resp BP Pulse Ox 07/27/24 08:00 97.8 F 80 18 126/77 97 07/27/24 04:00 98.5 F 80 16 117/80 07/27/24 00:00 98.3 F 91 16 107/72 07/26/24 20:00 98.5 F 91 16 109/74 96 07/26/24 15:30 98.1 F 105 H 16 111/67 98 07/26/24 13:30 98.0 F 96 17 135/77 98 07/26/24 13:15 87 16 128/62 97 07/26/24 13:00 96 17 128/73 98 07/26/24 12:45 95 16 125/70 98 07/26/24 12:30 100 16 124/68 97 07/26/24 12:12 94 16 119/57 97 07/26/24 12:00 106 H 17 127/63 97 07/26/24 11:43 112 H 17 117/66 98 07/26/24 11:30 96.9 F L 97 17 115/63 97 Intake and Output 07/26/24 07/27/24 07/27/24 22:59 06:59 14:59 Output Total 500 500 600 Balance -500 -500 -600 Output: Urine 500 500 600 Uretheral (Simon) 300 500 Other: Voiding Method Indwelling Catheter Toilet # Voids 2 - Exam Lungs: bilateral: normal Chest: Normal S1, Normal S2 Extremities: Present: normal Abdomen: Present: normal appearance, soft. Absent: distention, tenderness Incision: Present: normal, dry, intact Uterus: Present: normal, firm - Labs Labs: Abnormal Lab Results - Last 24 Hours (Table) 07/27/24 Range/Units 07:23 WBC 14.7 H (3.8-10.6) k/uL Hgb 10.1 L (11.4-16.0) gm/dL Hct 32.3 L (34.0-46.0) % Neutrophils # 12.1 H (1.3-7.7) k/uL Assessment and Plan (1) 39 weeks gestation of Current Visit: No Status: Resolved Code(s): Z3A.39 - 39 WEEKS GESTATION OF SNOMED Code(s): 12334614 (2) Previous section Current Visit: Yes Status: Resolved Code(s): Z98.891 - HISTORY OF UTERINE SCAR FROM PREVIOUS SURGERY SNOMED Code(s): 081412500 (3) Status post repeat low transverse section Current Visit: Yes Status: Acute Code(s): Z98.891 - HISTORY OF UTERINE SCAR FROM PREVIOUS SURGERY SNOMED Code(s): 244122277 Plan: 1. increase ambulation 2. reg diet
[2024-07-28 08:15] VITALS: BP 122/85; PULSE 92; RESP 16; TEMP 98.2
--- NOTE | 2024-07-28 09:33 | P.DS ---
Providers Date of admission: 07/26/24 01:58 Expected date of discharge: 07/28/24 Attending physician: Mohan Urrutia Primary care physician: Stated None - Discharge Diagnosis(es) (1) Status post repeat low transverse section Current Visit: Yes Status: Acute Hospital Course: The patient is a 28-year-old 2 para 1-0-0-1 admitted at 39 and 1 s evenths weeks by good dating parameters with documented spontaneous rupture of membranes. Her cervix was unfavorable at the time of presentation and she had requested vaginal trial of labor. On labor delivery, she was noted to have all signs reassuring with a category 1 heart rate tracing. She progressed through the night only minimally and began to have variable decelerations. Given her remoteness from delivery as well as the lack of significant progress, she opted to proceed with repeat low-transverse section. She was taken to the operating room where she was delivered of a viable 8 pound 7 ounce baby boy with Apgars of 9 at 1 minute and 9 at 5 minutes. Her and postoperative course was unremarkable with vital signs remaining stable and her temperature was afebrile throughout. She was deemed stable for discharge on and postoperative day #2. She was discharged home to follow-up in the office in 2 weeks for an incision check in 6 weeks routinely. Discharge instructions included calling for any significantly increased bleeding or foul- smelling lochia, significantly increased fever abdominal pain, perineal complaints, breast complaints, incisional complaints, or anything else that concerned her. She was additionally instructed to have nothing in the vagina for at least 6 weeks time to include intercourse. She understood her instructi ons and agrees to follow-up as noted above. Discharge medications included continued vitamins as she has opted to breast-feed. She was otherwise to use [id number] analgesic pain medications. She was provided with a prescription for oxycodone 5 mg, 1-2 p.o. every 6 hours as needed pain, #20 dispensed with no refills. Maternal blood type is Rh+ and rubella status is immune. Discharge hemoglobin and hematocrit were 10.1 and 32.3 respectively. Procedures: #1. Pitocin augmentation #2. Repeat low-transverse section Patient Condition at Discharge: Stable Plan - Discharge Summary New Discharge Prescriptions: No Action Pnv No.95/Ferrous Fum/Folic AC [ Multivitamin Tablet] 1 each PO DAILY Discharge Medication List Pnv No.95/Ferrous Fum/Folic AC [ Multivitamin Tablet] 1 each PO DAILY 09/29/19 [History] Follow up Appointment(s)/Referral(s): Mohan Urrutia MD [STAFF PHYSICIAN] - 2 Weeks Discharge Disposition: HOME SELF-CARE
--- NOTE | 2024-07-30 10:29 | P.PN ---
Progress Note - Text 07/27/24 702am 28-year-old female status post with spinal Duramorph. Patient seen and evaluated for postop pain control she has a VAS of 1 with no complaints of nausea vomiting she does have pruritus which should subside
== END 2024-07-28 12:00 | disposition home or self-care (01) | DRG 788 ==
LOC: FBPOP 01:42 → 4FBP 01:58
PROVIDERS: ADMIT Obstetrics & Gynecology; ATTEND Obstetrics & Gynecology
PROC: 4A0HXCZ Measurement of Products of Conception, Cardiac Rate, External Approach (ICD-10-PCS; 2024-07-26)
PROC: 3E033VJ Introduction of Other Hormone into Peripheral Vein, Percutaneous Approach (ICD-10-PCS; 2024-07-26)
PROC: 10D00Z1 Extraction of Products of Conception, Low, Open Approach (ICD-10-PCS; principal; 2024-07-26 11:03)
DX: O34.211 Maternal care for low transverse scar from previous cesarean delivery (principal); F41.9 Anxiety disorder, unspecified; O42.02 Full-term premature rupture of membranes, onset of labor within 24 hours of rupture; O76 Abnormality in fetal heart rate and rhythm complicating labor and delivery; O99.334 Smoking (tobacco) complicating childbirth; O99.344 Other mental disorders complicating childbirth; O26.893 Other specified pregnancy related conditions, third trimester; Z37.0 Single live birth; Z3A.39 39 weeks gestation of pregnancy; Z67.40 Type O blood, Rh positive
CPT/HCPCS: 59025; 84112; 85025; 86850; 86900; 86901; 99213